=== PATIENT | male | born 1960 | race Caucasian/White ===

== ENCOUNTER 2016-04-20 17:02 | Inpatient (IN) | payer BC ==
--- NOTE | 2016-04-20 16:52 | CT ---
EXAMINATION TYPE: CT abdomen pelvis w con DATE OF EXAM: 04/20/2016 4:39 PM COMPARISON: NONE HISTORY: 55-year-old male with right lower quadrant pain x 2 days. TECHNIQUE: Contiguous axial scanning of the abdomen and pelvis following administration of 100 ml Omn ipaque 300 IV contrast. Delayed images through the kidneys and coronal/sagittal reconstructions perf ormed. CT DLP: 1124.00 mGycm Automated exposure control for dose reduction was used. FINDINGS: Heart is normal size without pericardial effusion. Lung bases clear without pleural effusion. No focal liver lesion or biliary ductal dilatation. Small diverticulum of the second portion of the d uodenum projecting into the pancreatic head region. Portal venous system is patent Gallbladder, adrenal glands, kidneys, spleen with hilar splenule, and pancreas appear within normal l imits. No dilated small bowel, free fluid, or free air. The appendix is identified and is abnormally thickened, fluid-filled, and with mucosal hyperemia dist ended up to 1.4 cm with a number of appendicoliths within measuring up to 8 mm. There is moderate melvin rounding fat stranding and soft tissue thickening extending to the appendiceal base within the cecum, axial image 55. A few reactive right lower quadrant mesenteric lymph nodes are present measuring up to 9 mm. Mild circumferential bladder wall thickening. Prostate gland mildly enlarged at 4.1 cm. Central prost atic calcifications are noted. No abnormal fluid collection in the pelvis or pelvic lymphadenopathy. Bones: Degenerative changes right SI joint. Additional degenerative changes lower lumbar spine with b ilateral L5 pars defects and grade 1 L5-S1 anterolisthesis. No osseous destructive process. IMPRESSION: 1. FINDINGS COMPATIBLE WITH ACUTE APPENDICITIS. THERE IS MODERATELY INTENSE INFLAMMATION WITHOUT APPE NDICEAL RUPTURE, ABSCESS, OR FREE AIR. APPENDICOLITHS ARE PRESENT WITHIN MEASURING UP TO 8 MM. 2. ABNORMAL SOFT TISSUE THICKENING LOCATED ALONG THE BASE OF THE APPENDIX AT THE CECUM MAY BE REACTIV E MURAL EDEMA. CORRELATE WITH FINDINGS ON SURGERY TO EXCLUDE NEOPLASTIC THICKENING. 3. MILD CIRCUMFERENTIAL BLADDER WALL THICKENING COULD REFLECT CHRONIC BLADDER WALL HYPERTROPHY OR CYS TITIS. 4. BILATERAL L5 PARS DEFECTS WITH GRADE 1 L5-S1 ANTEROLISTHESIS.
[2016-04-20] MEDS ORDERED: HYDROmorphone 1 MG/ML 1 ML SYRINGE IVP STA (17:22)
[2016-04-20] MEDS ORDERED: SODIUM CHLORIDE 0.9% 1,000 ML IV STA (17:22)
[2016-04-20] MEDS ORDERED: ONDANSETRON 4 MG/2 ML VIAL IVP STA (17:22)
[2016-04-20] MEDS ORDERED: PIPERACILLIN-TAZOBACTAM 3.375 GM in DEXTROSE/WATER 1 50ML.BAG IVPB STA (17:22)
--- NOTE | 2016-04-20 17:26 | ED ---
General Adult HPI - General Chief complaint: Abdominal Pain Stated complaint: abnormal results from CT Time Seen by Provider: 04/20/16 17:05 Source: patient, RN notes reviewed Mode of arrival: ambulatory Limitations: no limitations - History of Present Illness Initial comments: This is a 55-year-old male who presents emergency Department with acute appendicitis. Patient had an outpatient CAT scan done it was found to have appendicitis I sent the patient to the emergency department. Patient states that a couple days of right lower quadrant pain which is getting progressively worse per patient denies any fever chills per patient states he has not been hungry and been a little bit nauseous but has not vomited. Patient denies any diarrhea. Patient denies any chest pain difficult breathing shortness of breath. Dr. Mendoza is aware of the case and called the emergency department to inform us that he'll be arriving. - Related Data Home Medications Medication Instructions Recorded Confirmed Hydrochlorothiazide [Hydrodiuril] 12.5 mg PO DAILY 03/22/14 04/20/16 Omeprazole [PriLOSEC] 20 mg PO DAILY 03/22/14 04/20/16 Ciprofloxacin HCl [Cipro] 500 mg PO BID 04/20/16 04/20/16 Levothyroxine Sodium [Synthroid] 75 mcg PO DAILY 04/20/16 04/20/16 Lisinopril 40 mg PO DAILY 04/20/16 04/20/16 Multivitamins, Thera [Multivitamin] 1 tab PO DAILY 04/20/16 04/20/16 metroNIDAZOLE [Flagyl] 500 mg PO TID 04/20/16 04/20/16 Allergies Allergy/AdvReac Type Severity Reaction Status Date / Time No Known Allergies Allergy Verified 04/20/16 17:17 Review of Systems ROS Statement: Those systems with pertinent positive or pertinent negative responses have been documented in the HPI. ROS Other: All systems not noted in ROS Statement are negative. Past Medical History Past Medical History: GERD/Reflux, Hypertension Additional Past Medical History / Comment(s): HOLE IN HEART AT History of Any Multi-Drug Resistant Organisms: None Reported Past Surgical History: Coronary Bypass/CABG Additional Past Surgical History / Comment(s): OPEN HEART -1968 Past Anesthesia/Blood Transfusion Reactions: No Reported Reaction Past Psychological History: No Psychological Hx Reported Smoking Status: Former smoker Past Alcohol Use History: None Reported Past Drug Use History: None Reported - Past Family History Father Family Medical History: CVA/TIA General Exam - General Exam Comments Initial Comments: GENERAL: Patient is well-developed and well-nourished. Patient is nontoxic and well- hydrated and is in mild distress. ENT: Neck is soft and supple. No significant lymphadenopathy is noted. Oropharynx is clear. Moist mucous membranes. Neck has full range of motion without eliciting any pain. EYES: The sclera were anicteric and conjunctiva were pink and moist. Extraocular movements were intact and pupils were equal round and reactive to light. Eyelids were unremarkable. PULMONARY: Unlabored respirations. Good breath sounds bilaterally. No audible rales rhonchi or wheezing was noted. CARDIOVASCULAR: There is a regular rate and rhythm without any murmurs gallops or rubs. ABDOMEN: Patient has right lower quadrant tenderness with rebound. SKIN: Skin is clear with no lesions or rashes and otherwise unremarkable. NEUROLOGIC: Patient is alert and oriented x3. Cranial nerves II through XII are grossly intact. Motor and sensory are also intact. Normal speech, volume and content. Symmetrical smile. MUSCULOSKELETAL: Normal extremities with adequate strength and full range of motion. No lower extremity swelling or edema. No calf tenderness. LYMPHATICS: No significant lymphadenopathy is noted PSYCHIATRIC: Normal psychiatric evaluation. Normal interpersonal interactions appears functionally intact in deals appropriately with others. No signs of depression. No signs of anxiety Limitations: no limitations Course Vital Signs 04/20/16 04/20/16 17:02 17:56 Temperature 98.9 F Pulse Rate 86 78 Respiratory 17 18 Rate Blood Pressure 151/77 150/80 O2 Sat by Pulse 99 96 Oximetry Medical Decision Making - Medical Decision Making Computed tomography scan was reviewed by myself showed acute appendicitis. I spoke with Dr. Henry he wanted the patient admitted admitted the patient started antibiotics and gave the patient some fluids. - Lab Data Result diagrams: 04/20/16 17:40 04/20/16 17:40 Lab Results 04/20/16 04/20/16 04/20/16 Range/Units 17:40 17:40 17:40 WBC 13.9 H (3.8-10.6) k/uL RBC 4.91 (4.30-5.90) m/uL Hgb 14.2 (13.0-17.5) gm/dL Hct 41.1 (39.0-53.0) % MCV 83.6 (80.0-100.0) fL MCH 29.0 (25.0-35.0) pg MCHC 34.6 (31.0-37.0) g/dL RDW 13.4 (11.5-15.5) % Plt Count 245 (150-450) k/uL Neutrophils % 84 % Lymphocytes % 7 % Monocytes % 6 % Eosinophils % 1 % Basophils % 0 % Neutrophils # 11.7 H (1.3-7.7) k/uL Lymphocytes # 1.0 (1.0-4.8) k/uL Monocytes # 0.9 (0-1.0) k/uL Eosinophils # 0.1 (0-0.7) k/uL Basophils # 0.0 (0-0.2) k/uL Sodium 133 L (137-145) mmol/L Potassium 4.2 (3.5-5.1) mmol/L Chloride 95 L (98-107) mmol/L Carbon Dioxide 25 (22-30) mmol/L Anion Gap 13 mmol/L BUN 17 (9-20) mg/dL Creatinine 0.81 (0.66-1.25) mg/dL Est GFR (MDRD) Af Amer >60 (>60 ml/min/1.73 sqM) Est GFR (MDRD) Non-Af >60 (>60 ml/min/1.73 sqM) Glucose 110 H (74-99) mg/dL Plasma Lactic Acid Siddhartha 0.7 (0.7-2.0) mmol/L Calcium 9.6 (8.4-10.2) mg/dL Total Bilirubin 1.1 (0.2-1.3) mg/dL AST 24 (17-59) U/L ALT 41 (21-72) U/L Alkaline Phosphatase 90 (38-126) U/L Total Protein 7.7 (6.3-8.2) g/dL Albumin 4.3 (3.5-5.0) g/dL Amylase 39 (30-110) U/L Lipase 67 (23-300) U/L Urine Color Urine Appearance (Clear) Urine pH (5.0-8.0) Ur Specific O'Brien (1.001-1.035) Urine Protein (Negative) Urine Glucose (UA) (Negative) Urine Ketones (Negative) Urine Blood (Negative) Urine Nitrate (Negative) Urine Bilirubin (Negative) Urine Urobilinogen (<2.0) mg/dL Ur Leukocyte Esterase (Negative) 04/20/16 Range/Units 17:44 WBC (3.8-10.6) k/uL RBC (4.30-5.90) m/uL Hgb (13.0-17.5) gm/dL Hct (39.0-53.0) % MCV (80.0-100.0) fL MCH (25.0-35.0) pg MCHC (31.0-37.0) g/dL RDW (11.5-15.5) % Plt Count (150-450) k/uL Neutrophils % % Lymphocytes % % Monocytes % % Eosinophils % % Basophils % % Neutrophils # (1.3-7.7) k/uL Lymphocytes # (1.0-4.8) k/uL Monocytes # (0-1.0) k/uL Eosinophils # (0-0.7) k/uL Basophils # (0-0.2) k/uL Sodium (137-145) mmol/L Potassium (3.5-5.1) mmol/L Chloride (98-107) mmol/L Carbon Dioxide (22-30) mmol/L Anion Gap mmol/L BUN (9-20) mg/dL Creatinine (0.66-1.25) mg/dL Est GFR (MDRD) Af Amer (>60 ml/min/1.73 sqM) Est GFR (MDRD) Non-Af (>60 ml/min/1.73 sqM) Glucose (74-99) mg/dL Plasma Lactic Acid Siddhartha (0.7-2.0) mmol/L Calcium (8.4-10.2) mg/dL Total Bilirubin (0.2-1.3) mg/dL AST (17-59) U/L ALT (21-72) U/L Alkaline Phosphatase (38-126) U/L Total Protein (6.3-8.2) g/dL Albumin (3.5-5.0) g/dL Amylase (30-110) U/L Lipase (23-300) U/L Urine Color Yellow Urine Appearance Clear (Clear) Urine pH 6.5 (5.0-8.0) Ur Specific O'Brien 1.036 H (1.001-1.035) Urine Protein Negative (Negative) Urine Glucose (UA) Negative (Negative) Urine Ketones Negative (Negative) Urine Blood Negative (Negative) Urine Nitrate Negative (Negative) Urine Bilirubin Negative (Negative) Urine Urobilinogen <2.0 (<2.0) mg/dL Ur Leukocyte Esterase Negative (Negative) Disposition Clinical Impression: Acute appendicitis Disposition: ADMITTED IP TO THIS [facility] Time of Disposition: 18:59
[2016-04-20] MEDS ORDERED: DIPHENOX-ATROP STARTER PACK 8 TAB BTL PO STA (18:07)
[2016-04-20 18:12] LABS: ALT 41 U/L (21-72); AST 24 U/L (17-59); Alkaline Phosphatase 90 U/L (38-126); Amylase 39 U/L (30-110); Anion Gap 13 mmol/L; Blood Urea Nitrogen 17 mg/dL (9-20); Calcium 9.6 mg/dL (8.4-10.2); Carbon Dioxide 25 mmol/L (22-30); Chloride 95 mmol/L (98-107); Glucose 110 mg/dL (74-99); Non-African American GFR(MDRD) >60 (>60 ml/min/1.73 sqM); Potassium 4.2 mmol/L (3.5-5.1); Sodium 133 mmol/L (137-145); Total Bilirubin 1.1 mg/dL (0.2-1.3); Total Protein 7.7 g/dL (6.3-8.2)
[2016-04-20 18:14] LABS: Basophils % (A) 0 %; CH 30.2; CHCM 36.3; Eosinophils # (A) 0.1 k/uL (0-0.7); Eosinophils % (A) 1 %; HCT 41.1 % (39.0-53.0); HDW 3.02; HGB 14.2 gm/dL (13.0-17.5); Luc # (Auto) 0.23; Luc % (Auto) 2; Lymphocytes % (A) 7 %; MCHC 34.6 g/dL (31.0-37.0); MCV 83.6 fL (80.0-100.0); Mean Platelet Volume 6.9; Monocytes # (A) 0.9 k/uL (0-1.0); Monocytes % (A) 6 %; Neutrophils # (A) 11.7 k/uL (1.3-7.7); Neutrophils % (A) 84 %; RBC 4.91 m/uL (4.30-5.90); RDW 13.4 % (11.5-15.5); WBC 13.9 k/uL (3.8-10.6); WBC (Perox) 13.64
[2016-04-20 18:15] LABS: Appearance,Urine Clear (Clear); Bilirubin,Urine Negative (Negative); Glucose,Urine (UA) Negative (Negative); Ketones,Urine Negative (Negative); Leukocyte Esterase,Urine Negative (Negative); Nitrite,Urine Negative (Negative); PH, Urine 6.5 (5.0-8.0); Protein,Urine Negative (Negative); Specific Gravity,Urine 1.036 (1.001-1.035); UA Billing (MACRO vs. MICRO) CHEM; Urobilinogen,Urine <2.0 mg/dL (<2.0)
[2016-04-20] MEDS ORDERED: HYDROmorphone 1 MG/ML 1 ML SYRINGE IVP PRN ×2 (19:00→21:39)
[2016-04-20] MEDS ORDERED: ONDANSETRON 4 MG/2 ML VIAL IVP PRN (19:00)
[2016-04-20] MEDS ORDERED: SODIUM CHLORIDE 0.9% 1,000 ML IV ONE (19:56)
--- NOTE | 2016-04-20 20:43 | P.GSHP ---
History of Present Illness H&P Date: 04/20/16 Chief Complaint: Right lower quadrant pain This is a 55-year-old male who had complaints of abdominal pain. The patient was seen by Tanisha Bruner this morning and sent for a CAT scan. Patient was found have appendicitis. The patient states she's had pain for 2 days. He states his pain was a 10 out of 10 this morning Past Medical History Past Medical History: GERD/Reflux, Hypertension Additional Past Medical History / Comment(s): HOLE IN HEART AT History of Any Multi-Drug Resistant Organisms: None Reported Past Surgical History: Coronary Bypass/CABG Additional Past Surgical History / Comment(s): OPEN HEART -1968 Past Anesthesia/Blood Transfusion Reactions: No Reported Reaction Past Psychological History: No Psychological Hx Reported Smoking Status: Former smoker Past Alcohol Use History: None Reported Past Drug Use History: None Reported - Past Family History Father Family Medical History: CVA/TIA Medications and Allergies Home Medications Medication Instructions Recorded Confirmed Type Hydrochlorothiazide [Hydrodiuril] 12.5 mg PO DAILY 03/22/14 04/20/16 History Omeprazole [PriLOSEC] 20 mg PO DAILY 03/22/14 04/20/16 History Ciprofloxacin HCl [Cipro] 500 mg PO BID 04/20/16 04/20/16 History Levothyroxine Sodium [Synthroid] 75 mcg PO DAILY 04/20/16 04/20/16 History Lisinopril 40 mg PO DAILY 04/20/16 04/20/16 History Multivitamins, Thera [Multivitamin] 1 tab PO DAILY 04/20/16 04/20/16 History metroNIDAZOLE [Flagyl] 500 mg PO TID 04/20/16 04/20/16 History Allergies Allergy/AdvReac Type Severity Reaction Status Date / Time No Known Allergies Allergy Verified 04/20/16 17:17 Surgical - Exam Vital Signs Temp Pulse Resp BP Pulse Ox 98.9 F 86 17 151/77 99 04/20/16 17:02 04/20/16 17:02 04/20/16 17:02 04/20/16 17:02 04/20/16 17:02 - General well developed, no distress - Eyes PERRL - ENT normal pinna - Neck no masses - Respiratory normal expansion - Abdomen Abdomen: tender (Tenderness right lower quadrant. There is some rebound tenderness) Results - Labs 04/20/16 17:40 04/20/16 17:40 Assessment and Plan Plan: Acute appendicitis. We'll perform laparoscopic appendectomy
[2016-04-20] MEDS ORDERED: BUPIVACAIN-EPI 0.25%-1:200,000 30 ML VIAL SQ ONE ×2 (20:45→21:32)
[2016-04-20] MEDS ORDERED: NEOSTIGMINE 1 MG/ML 10 ML VIAL ONE (20:55)
[2016-04-20] MEDS ORDERED: LIDOCAINE 1% INJ 10MG/ML (20 ML MDV) ONE (20:55)
[2016-04-20] MEDS ORDERED: GLYCOPYRROLATE 0.2 MG/ML 2 ML VIAL ONE (20:55)
[2016-04-20] MEDS ORDERED: fentaNYL (PF) 50 MCG/ML 2 ML AMP ONE (20:55)
[2016-04-20] MEDS ORDERED: ROCURONIUM BROMIDE 10 MG/ML 10 ML VIAL IV ONE (20:55)
[2016-04-20] MEDS ORDERED: DEXAMETHASONE SOD PHOS (MDV) 100 MG/10 ML VIAL ONE (20:55)
[2016-04-20] MEDS ORDERED: SUCCINYLCHOLINE CHLORIDE 100 MG/5 ML SYR IV ONE (20:55)
[2016-04-20] MEDS ORDERED: PROPOFOL 10 MG/ML 20 ML VIAL IV ONE (20:55)
[2016-04-20] MEDS ORDERED: MIDAZOLAM 2 MG/2 ML VIAL ONE (20:55)
--- NOTE | 2016-04-20 21:38 | P.OP ---
Date of Procedure: 04/20/16 Preoperative Diagnosis: Acute appendicitis Postoperative Diagnosis: Acute appendicitis with ruptured appendicitis Procedure(s) Performed: Laparoscopic appendectomy Anesthesia: JOSEPHINE Surgeon: Jacoby Mendoza Estimated Blood Loss (ml): 5 Pathology: other Condition: stable (Appendix) Disposition: PACU Description of Procedure: The patient's placed on the operating table in the supine position. The patient received general anesthesia. The abdomen was prepped and draped in the usual sterile fashion. The skin was anesthetized 1% local Xylocaine at the trocar sites. Using an 11 blade the skin was incised at the umbilicus. The umbilicus was grasped with a Jostin clamp and then a Veress needle was placed into the peritoneal cavity. Position of the Veress needle was confirmed with positive drop test. After adequate insufflation a 5 mm trocar was placed into the peritoneal cavity. The abdomen was further insufflated. And then the laparoscope was placed in the peritoneal cavity. Next a 5 mm trocar was placed in the midline suprapubic position. And then a 10 mm trocar was placed in the midline epigastric position. The patient was rotated with the right side up and in Trendelenburg. The appendix was visualized. There appeared to be some perforation near the base the appendix. This area was irrigated well. The appendix appeared to be inflamed. The appendix was grasped and then using the Harmonic scissors the mesoappendix was divided. A PDS Endoloop was then placed around the base of the appendix on viable tissue. And then the appendix was divided using Harmonic scissors. The appendix was placed into an Endo Catch and brought out through the 10 mm trocar site. The abdomen was irrigated. There is no bleeding seen. The trochars withdrawn. The skin was closed interrupted 3-0 Monocryl suture. Dermabond dressing was applied. Patient was sent to recovery room in stable condition.
[2016-04-20] MEDS ORDERED: NALOXONE 0.4 MG/ML 1 ML VIAL IV PRN (21:39)
[2016-04-20] MEDS ORDERED: LACTATED RINGERS 1,000 ML IV ONE (21:39)
[2016-04-20] MEDS ORDERED: ACETAMINOPHEN TAB 325 MG TAB PO PRN (21:39)
[2016-04-20] MEDS: MEPERIDINE 50 MG/ML SYRINGE IVP ONE ×4 (21:51→22:12)
[2016-04-20] MEDS: SODIUM CHLORIDE 0.9% 1,000 ML IV ONE ×2 (22:13→22:32)
[2016-04-20 23:09] VITALS: BMI 24.5
[2016-04-20] MEDS: PIPERACILLIN-TAZOBACTAM 3.375 GM in DEXTROSE/WATER 1 50ML.BAG IVPB SCH (23:16)
[2016-04-21] MEDS: PIPERACILLIN-TAZOBACTAM 3.375 GM in DEXTROSE/WATER 1 50ML.BAG IVPB SCH ×3 (09:28→23:29)
[2016-04-21] MEDS: HYDROcodone/APAP 5-325MG 1 EACH TAB PO PRN ×3 (09:31→22:17)
[2016-04-21 09:56] LABS: ALT 44 U/L (21-72); AST 25 U/L (17-59); Alkaline Phosphatase 78 U/L (38-126); Anion Gap 14 mmol/L; Blood Urea Nitrogen 15 mg/dL (9-20); Calcium 8.8 mg/dL (8.4-10.2); Carbon Dioxide 23 mmol/L (22-30); Chloride 102 mmol/L (98-107); Glucose 180 mg/dL (74-99); Non-African American GFR(MDRD) >60 (>60 ml/min/1.73 sqM); Potassium 4.6 mmol/L (3.5-5.1); Sodium 139 mmol/L (137-145); Total Protein 6.7 g/dL (6.3-8.2)
[2016-04-21 11:34] LABS: Basophils % (A) 0 %; CHCM 35.8; Eosinophils % (A) 0 %; HCT 39.3 % (39.0-53.0); HDW 2.96; HGB 13.7 gm/dL (13.0-17.5); Luc # (Auto) 0.05; Luc % (Auto) 0; Lymphocytes # (A) 0.3 k/uL (1.0-4.8); Lymphocytes % (A) 3 %; MCH 29.4 pg (25.0-35.0); MCHC 34.9 g/dL (31.0-37.0); MCV 84.2 fL (80.0-100.0); Monocytes # (A) 0.4 k/uL (0-1.0); Monocytes % (A) 3 %; Neutrophils # (A) 11.3 k/uL (1.3-7.7); Neutrophils % (A) 93 %; RBC 4.67 m/uL (4.30-5.90); WBC 12.2 k/uL (3.8-10.6); WBC (Perox) 13.59
[2016-04-21 12:49] LABS: Manual Review Performed
[2016-04-21 12:50] LABS: RBC Morphology Normal
--- NOTE | 2016-04-21 14:48 | P.PN ---
Subjective Principal diagnosis: Ruptured appendicitis Patient is a 55-year-old white male admitted with abdominal pain and evidence of acute appendicitis. Patient was taken to the operating room and underwent laparoscopic appendectomy with findings of ruptured appendicitis. Patient is evaluated on the medical floor he is postop day #1. Patient reports abdominal pain is better. Denies chills, nausea, vomiting, shortness of breath, or chest pain. Patient is tolerating a clear liquid diet. Patient has been up ambulating. Patient is urinating without difficulty. Patient is passing flatus without bowel movements. Afebrile. Hemodynamically stable. WBC decreased to 12.2. Hemoglobin stable at 13.7. Patient remains on IV Zosyn. Infectious disease service appropriate services following patient. Objective - Vital Signs Vital signs: Vital Signs Temp 98.2 F 04/21/16 07:00 Pulse 80 04/21/16 08:00 Resp 18 04/21/16 08:00 BP 176/79 04/21/16 07:00 Pulse Ox 96 04/21/16 07:00 Intake & Output 04/20/16 04/21/16 04/21/16 18:59 06:59 18:59 Intake Total 2000 Output Total 805 Balance 1195 Weight 77.5 kg 77.5 kg Intake: IV 2000 Lactated Ringers 1,000 ml 1000 @ 125 mls/hr IV .Q8H ONE Rx#:[id number] Output: Urine 800 Estimated Blood Loss 5 Other: Voiding Method Toilet Toilet Urinal Urinal - Exam GENERAL: Pt awake and alert, well-appearing, well-nourished, and in no acute distress. LUNGS: Breath sounds clear to auscultation bilaterally. No wheezes, rales, or rhonchi. HEART: Heart S1, S2, no S3 or S4. Regular rate and rhythm. Systolic murmur. ABDOMEN: Soft, mild incisional tenderness, nondistended, normoactive bowel sounds. No guarding, no rebound. Laparoscopic surgical dressings with old sister sanguinous drainage. NEUROLOGICAL: Pt oriented x 3. - Labs CBC & Chem 7: 04/21/16 08:24 04/21/16 08:24 Labs: Abnormal Lab Results - Last 24 Hours (Table) 04/21/16 04/21/16 Range/Units 08:24 08:24 WBC 12.2 H (3.8-10.6) k/uL Neutrophils # 11.3 H (1.3-7.7) k/uL Lymphocytes # 0.3 L (1.0-4.8) k/uL Glucose 180 H (74-99) mg/dL Assessment and Plan Plan: Impression: 1. Perforated appendicitis status post laparoscopic appendectomy. Plan: Continue to monitor patient. Continue IV antibiotics per infectious disease recommendations. Continue supportive treatment and pain management. Advance diet to regular. Continue supportive treatment and pain management. Continue to follow with medical and infectious disease service. Repeat CBC and BMP in a.m. The above impression and plan have been discussed and directed by Dr. Mendoza. Ciaran CORREA acting as scribe for Dr. Mendoza.
[2016-04-21] MEDS: MULTIVITAMINS, THERA 1 EACH TAB PO SCH (16:04)
[2016-04-21] MEDS: LEVOTHYROXINE 75 MCG TAB PO SCH (16:04)
[2016-04-21] MEDS: HYDROCHLOROTHIAZIDE 12.5 MG CAP PO SCH (16:04)
[2016-04-21] MEDS: LISINOPRIL 20 MG TAB PO SCH (16:06)
--- NOTE | 2016-04-21 16:30 | P.CONS ---
History of Present Illness - Reason for Consult Consult date: 04/21/16 Medical management Requesting physician: Jacoby Mendoza - Chief Complaint Abdominal pain - History of Present Illness This is a 55-year-old gentleman with past medical history noted below who presented to the hospital with worsening abdominal pain. Patient was evaluated in the emergency room and underwent a computed tomography scan of the abdomen showing evidence of acute appendicitis with suspected perforated appendix. Patient was taken to the OR and underwent laparoscopic appendectomy. He remained hemodynamically stable. He tolerated the surgery well. He is complaining of abdominal distention and bloating. He denies any significant pain. He is passing gas but did not have a bowel movement as of yet. I was asked to see him for medical management. Review of Systems Review of system: 14 points review of systems were obtained and were negative except to what were mentioned in the HPI. Past Medical History Past Medical History: GERD/Reflux, Hypertension Additional Past Medical History / Comment(s): HOLE IN HEART AT History of Any Multi-Drug Resistant Organisms: None Reported Past Surgical History: Appendectomy, Coronary Bypass/CABG, Ear Surgery Additional Past Surgical History / Comment(s): OPEN HEART -1969 Past Anesthesia/Blood Transfusion Reactions: No Reported Reaction Past Psychological History: No Psychological Hx Reported Smoking Status: Former smoker Past Alcohol Use History: None Reported Past Drug Use History: None Reported - Past Family History Father Family Medical History: CVA/TIA Medications and Allergies Home Medications Medication Instructions Recorded Confirmed Type Hydrochlorothiazide [Hydrodiuril] 12.5 mg PO DAILY 03/22/14 04/20/16 History Omeprazole [PriLOSEC] 20 mg PO DAILY 03/22/14 04/20/16 History Ciprofloxacin HCl [Cipro] 500 mg PO BID 04/20/16 04/20/16 History Levothyroxine Sodium [Synthroid] 75 mcg PO DAILY 04/20/16 04/20/16 History Lisinopril 40 mg PO DAILY 04/20/16 04/20/16 History Multivitamins, Thera [Multivitamin] 1 tab PO DAILY 04/20/16 04/20/16 History metroNIDAZOLE [Flagyl] 500 mg PO TID 04/20/16 04/20/16 History Allergies Allergy/AdvReac Type Severity Reaction Status Date / Time No Known Allergies Allergy Verified 04/20/16 17:17 Physical Exam Vitals: Vital Signs Temp Pulse Pulse Pulse Resp BP BP 04/21/16 15:00 97.7 F 84 18 164/78 04/21/16 08:00 80 80 18 04/21/16 07:00 98.2 F 80 18 176/79 04/21/16 01:50 92 151/85 04/21/16 01:20 84 153/79 04/21/16 00:50 146/84 04/21/16 00:20 86 16 133/81 04/20/16 23:50 86 16 128/79 04/20/16 23:35 86 18 144/72 04/20/16 23:20 98.2 F 80 18 135/83 04/20/16 23:00 97.5 F L 80 16 147/80 04/20/16 22:30 77 16 130/53 04/20/16 22:15 75 16 145/66 04/20/16 22:00 68 16 132/61 04/20/16 21:45 97.8 F 70 16 136/65 04/20/16 20:01 99.2 F 70 16 128/70 04/20/16 19:00 78 16 153/74 Pulse Ox 04/21/16 15:00 94 L 04/21/16 08:00 04/21/16 07:00 96 04/21/16 01:50 100 04/21/16 01:20 98 04/21/16 00:50 98 04/21/16 00:20 98 04/20/16 23:50 98 04/20/16 23:35 97 04/20/16 23:20 96 04/20/16 23:00 97 04/20/16 22:30 94 L 04/20/16 22:15 93 L 04/20/16 22:00 96 04/20/16 21:45 98 04/20/16 20:01 97 04/20/16 19:00 97 Intake and Output 04/21/16 04/21/16 04/21/16 06:59 14:59 22:59 Intake Total 1000 Output Total 500 Balance 500 Intake: IV 1000 Lactated Ringers 1,000 ml 1000 @ 125 mls/hr IV .Q8H ONE Rx#:[id number] Output: Urine 500 Other: Voiding Method Toilet Toilet Urinal Urinal # Voids 2 Weight 77.5 kg 77.5 kg Patient Weight 04/22/16 06:59 Weight 77.5 kg General: The patient is awake and alert, in no distress Eye: there is normal conjunctiva bilaterally. Neck: The neck is supple, there is no JVD. Cardiovascular: Normal S1-S2, no S3-S4, no murmurs. Respiratory: Lungs clear to auscultation bilaterally Gastrointestinal: Abdomen is soft, but distended with no tenderness Musculoskeletal: There is no pedal edema. Neurological:. Speech is normal. Skin: Skin is warm and dry Results CBC & Chem 7: 04/21/16 08:24 04/21/16 08:24 Labs: Abnormal Lab Results - Last 24 Hours (Table) 04/21/16 04/21/16 Range/Units 08:24 08:24 WBC 12.2 H (3.8-10.6) k/uL Neutrophils # 11.3 H (1.3-7.7) k/uL Lymphocytes # 0.3 L (1.0-4.8) k/uL Glucose 180 H (74-99) mg/dL Assessment and Plan Plan: 1. Acute appendicitis with suspected perforated appendix status post laparoscopic appendectomy: Continue postoperative care. Encouraged ambulation. Diet will be advanced per surgery recommendations. 2. Perforated appendix with mild peritonitis: Currently on IV antibiotic. A be switched to Augmentin tomorrow if continue to to be stable clinically 3. Essential hypertension: Blood pressure not well controlled. Home medication resumed. We will continue to monitor closely. 4. Hypothyroidism on levothyroxin 5. DVT prophylaxis with subcu heparin Today, I reviewed her medication list and lab work results. Continue current regimen. Thank you very much for the consultation. I will continue to follow up on the patient closely.
[2016-04-21] MEDS: HEPARIN SODIUM,PORCINE 5,000 UNIT/ML 1 ML VIAL SQ SCH (20:51)
[2016-04-21 22:47] VITALS: RESP 16
--- NOTE | 2016-04-21 23:30 | CONS ---
DATE OF CONSULTATION: 04/21/2016 REASON FOR CONSULTATION: Secondary peritonitis with ruptured appendicitis. HISTORY OF PRESENT ILLNESS: The patient is a 55-year-old male who presented to [facility] ER with the chief complaint of abdominal pain that started on Tuesday. Pain has been mostly in the right lower abdominal area described as sharp, almost 7 to 8 out of 10, and no radiation. The patient felt nauseated but no vomiting with it. The patient did have some chills but denies any high-grade fever. Subsequently the patient was evaluated by the ER physician. The patient did have a CT of the abdomen and pelvis which did show the appendix to be abnormal, thickened, fluid-filled, with mucosal hyperemia, distended up to 1.4 cm, with moderate surrounding fat stranding and soft tissue thickening. Subsequently he was taken to the OR by Dr. Mendoza that evening, where the patient was noticed to have ruptured appendicitis. The patient is status post appendectomy. Blood cultures were obtained. He was started on piperacillin tazobactam. I was asked to see the patient for further recommendations regarding antibiotic therapy. REVIEW OF SYSTEMS: CONSTITUTIONAL: Positive for weakness and some chills. EYES: No complaint. ENT: No complaint. RESPIRATORY: No complaint. CARDIOVASCULAR: No complaint. GENITOURINARY: No complaint. GASTROINTESTINAL: As per HPI. MUSCULOSKELETAL: No complaint. INTEGUMENTARY: No complaint. PSYCHOLOGIC: No complaint. ENDOCRINE: No complaint. NEUROLOGIC: No complaint. Past medical history is significant for: 1. Hypertension. 2. Gastroesophageal reflux disease. 3. Cardiac abnormality at . PAST SURGICAL HISTORY: 1. Appendectomy. 2. Coronary surgery for repair of the cardiac abnormality. SOCIAL HISTORY: Remote history of smoking. No drinking or drug use. FAMILY HISTORY: Father with history of CVA and TIA. ALLERGIES: NO KNOWN DRUG ALLERGIES. Medications currently include: 1. Piperacillin tazobactam. 2. Zofran. 3. Narcan. 4. Theragran. 5. Zestril. 6. Synthroid. 7. Dilaudid. 8. Hydrochlorothiazide. 9. Heparin. 10. [place]. 11. Tylenol. On examination, blood pressure is 164/78 with a pulse 84, temperature 97.7. He is 94% on room air. General description is a middle-aged male lying in bed in no distress. No tachypnea or accessory muscle of respiration use. HEENT examination shows no pallor or scleral icterus. Oral mucous membrane dry. NECK: Trachea is central. No thyromegaly. LUNGS: Unlabored breathing. Clear to auscultation anteriorly. HEART: S1, S2. Regular rate and rhythm. ABDOMEN: Soft. No guarding. No rigidity. EXTREMITIES: No edema of feet. SKIN EXAMINATION: No rash or mass palpable. NEUROLOGICAL: Patient is awake, alert, oriented x3. Mood and affect normal. LABS: Hemoglobin is 13.7, white count of 12.2. Yesterday white count was 13.9. BUN of 15, creatinine 0.74. UA has been negative. Blood cultures are currently pending. DIAGNOSTIC IMPRESSION AND PLAN: Patient with secondary peritonitis from ruptured appendicitis. Patient has not been on antibiotics in the recent past. More likely a sensitive enteric Gram-negative both aerobes and anaerobes that will likely need to be covered. PLAN: 1. The patient will be continued on Zosyn 3.375 grams IV piggyback q.8. That should cover the enteric Gram-negative, both aerobes and anaerobes. 2. Will follow up on the clinical condition as well as the culture to further adjust medication if needed. Thank you for this consultation. Will follow this patient along with you. CONTRERAS
[2016-04-22] MEDS: LEVOTHYROXINE 75 MCG TAB PO SCH (06:16)
[2016-04-22 07:50] VITALS: BP 130/79; PULSE 52; TEMP 97.6
[2016-04-22] MEDS: LISINOPRIL 20 MG TAB PO SCH (07:50)
[2016-04-22] MEDS: PIPERACILLIN-TAZOBACTAM 3.375 GM in DEXTROSE/WATER 1 50ML.BAG IVPB SCH (07:50)
[2016-04-22] MEDS: MULTIVITAMINS, THERA 1 EACH TAB PO SCH (07:51)
[2016-04-22] MEDS: HYDROCHLOROTHIAZIDE 12.5 MG CAP PO SCH (07:51)
[2016-04-22] MEDS: HEPARIN SODIUM,PORCINE 5,000 UNIT/ML 1 ML VIAL SQ SCH (07:51)
[2016-04-22 10:04] LABS: Basophils # (A) 0.2 k/uL (0-0.2); Basophils % (A) 2 %; CH 29.8; CHCM 34.9; Eosinophils # (A) 0.2 k/uL (0-0.7); Eosinophils % (A) 2 %; HCT 36.5 % (39.0-53.0); HDW 3.02; HGB 12.4 gm/dL (13.0-17.5); Luc % (Auto) 1; Lymphocytes # (A) 0.8 k/uL (1.0-4.8); Lymphocytes % (A) 7 %; MCH 29.1 pg (25.0-35.0); MCV 85.8 fL (80.0-100.0); Mean Platelet Volume 7.9; Monocytes # (A) 0.5 k/uL (0-1.0); Monocytes % (A) 4 %; Neutrophils # (A) 9.8 k/uL (1.3-7.7); Neutrophils % (A) 85 %; RBC 4.26 m/uL (4.30-5.90); WBC 11.5 k/uL (3.8-10.6); WBC (Perox) 11.83
[2016-04-22 10:26] LABS: Anion Gap 12 mmol/L; Blood Urea Nitrogen 16 mg/dL (9-20); Carbon Dioxide 28 mmol/L (22-30); Chloride 97 mmol/L (98-107); Glucose 143 mg/dL (74-99); Non-African American GFR(MDRD) >60 (>60 ml/min/1.73 sqM); Potassium 3.8 mmol/L (3.5-5.1); Sodium 137 mmol/L (137-145)
--- NOTE | 2016-04-22 12:13 | P.PN ---
Subjective Patient presented with abdominal pain found to have a subacute appendicitis with suspected perforated appendix. Went to OR and had laparoscopic appendectomy. He's also being treated for peritonitis. Patient is tolerating regular diet. Denies any nausea or vomiting. He is passing gas. No bowel movement yet. Denies any chest pain or shortness breath. Denies any difficulty urinating. Pain is controlled. Patient is anticipating discharge later today. Discussed case with Dr. Dutta and he is planning discharge this afternoon. Objective - Vital Signs Vital signs: Vital Signs Temp 97.6 F 04/22/16 07:00 Pulse 52 L 04/22/16 08:00 Resp 16 04/22/16 08:00 BP 130/79 04/22/16 07:00 Pulse Ox 94 L 04/22/16 07:00 Intake & Output 04/21/16 04/22/16 04/22/16 18:59 06:59 18:59 Intake Total 200 Balance 200 Weight 77.5 kg 77.5 kg Intake: Oral 200 Other: Voiding Method Toilet Toilet Toilet Urinal Urinal Urinal # Voids 2 1 - Exam Head normocephalic Neck supple Lungs clear to auscultation bilaterally no wheezing or crackles Heart regular rate and rhythm S1-S2, no rub or gallop Abdomen is soft nontender nondistended positive bowel sounds no hepatosplenomegaly Extremities no edema Neuro alert and orientated to 3 - Labs CBC & Chem 7: 04/22/16 08:35 04/22/16 08:35 Labs: Abnormal Lab Results - Last 24 Hours (Table) 04/21/16 04/22/16 04/22/16 Range/Units 08:24 08:35 08:35 WBC 12.2 H 11.5 H (3.8-10.6) k/uL RBC 4.26 L (4.30-5.90) m/uL Hgb 12.4 L (13.0-17.5) gm/dL Hct 36.5 L (39.0-53.0) % Neutrophils # 11.3 H 9.8 H (1.3-7.7) k/uL Lymphocytes # 0.3 L 0.8 L (1.0-4.8) k/uL Chloride 97 L (98-107) mmol/L Glucose 143 H (74-99) mg/dL Assessment and Plan Plan: 1. Acute appendicitis with suspected perforated appendix status post laparoscopic appendectomy: Continue postoperative care. Encouraged ambulation. Diet will be advanced per surgery recommendations. 2. Perforated appendix with mild peritonitis: Currently on IV antibiotic. Infectious disease is following. We'll await their dictations for discharge antibiotics 3. Essential hypertension: Blood pressures have improved after restarting home medications. 4. Hypothyroidism on levothyroxin 5. DVT prophylaxis with subcu heparin Patient is medically stable for discharge once infectious disease gives their antibiotic recommendations. Patient is to follow-up with his PCP in 1 week.
[2016-04-22 13:16] LABS: Hemoglobin A1C 5.2 % (4.2-6.1)
--- NOTE | 2016-04-22 13:27 | PN ---
DATE OF SERVICE: 04/22/2016 Reason for followup is acute appendicitis with perforation and secondary peritonitis. INTERVAL HISTORY: The patient is afebrile. Has been feeling better. His abdominal pain has improved. The patient is tolerating a diet. There is no nausea, vomiting or any diarrhea. On examination, blood pressure 130/79 with a pulse of 52, temperature 97.6. He is 94% on room air. General description is a middle-age male lying in bed in no distress. RESPIRATORY SYSTEM: Unlabored breathing. Clear to auscultation anteriorly. HEART: S1, S2. Regular rate and rhythm. ABDOMEN: Soft. No tenderness. LABS: Hemoglobin is 12.4, white count 11.5 with a BUN of 16, creatinine 0.85. Blood culture negative. no abdominal culture were done. DIAGNOSTIC IMPRESSION AND PLAN: Patient with secondary peritonitis from a ruptured appendicitis. The patient is responding to the, Zosyn that will be continued. Awaiting for the culture to finalize to determine his discharge antibiotics. Continue supportive care. CONTRERAS
--- NOTE | 2016-04-22 14:42 | P.DS ---
Providers Date of admission: 04/20/16 18:59 Expected date of discharge: 04/22/16 Attending physician: Jacoby Mendoza Consults: 04/20/16 21:39 Consult Physician Routine Consulting Provider: Noy Rosario Consult Reason/Comments: Medical management Do you want consulting provider notified?: Yes Consult Physician Routine Consulting Provider: Brittany William Consult Reason/Comments: Perforated appendicitis Do you want consulting provider notified?: Yes Primary care physician: Connie Vela Hospital Course: Patient is a 55-year-old white male admitted with abdominal pain and evidence of acute appendicitis. Patient was taken to the operating room and underwent laparoscopic appendectomy with findings of ruptured appendicitis. Patient tolerated procedure well. Patient was followed by Dr. Willima from infectious disease service during hospital stay. Patient had an uneventful postoperative course. Patient improved significantly and was deemed stable for discharge to home with follow-up in the outpatient setting. Discharge diagnoses: 1. Perforated appendicitis status post laparoscopic appendectomy. The above impression and plan have been discussed and directed by Dr. Mendoza. Ciaran CORREA acting as scribe for Dr. Mendoza. Pertinent Studies: Abdomen/pelvis CT Procedures: Lab scopic appendectomy Patient Condition at Discharge: Good Plan - Discharge Summary New Discharge Prescriptions: HYDROcodone/APAP 7.5-325MG [[place] 7.5-325] 1 tab PO Q6HR PRN #28 tab PRN Reason: Pain Discharge Medication List Hydrochlorothiazide [Hydrodiuril] 12.5 mg PO DAILY 03/22/14 [History] Omeprazole [PriLOSEC] 20 mg PO DAILY 03/22/14 [History] Ciprofloxacin HCl [Cipro] 500 mg PO BID 04/20/16 [History] Levothyroxine Sodium [Synthroid] 75 mcg PO DAILY 04/20/16 [History] Lisinopril 40 mg PO DAILY 04/20/16 [History] Multivitamins, Thera [Multivitamin] 1 tab PO DAILY 04/20/16 [History] metroNIDAZOLE [Flagyl] 500 mg PO TID 04/20/16 [History] HYDROcodone/APAP 7.5-325MG [[place] 7.5-325] 1 tab PO Q6HR PRN #28 tab 04/21/16 [ Rx] Follow up Appointment(s)/Referral(s): Connie Veal DO [Primary Care Provider] - 04/29/16 1:15 pm Brittany William MD [STAFF PHYSICIAN] - 1 Week (Please see Dr. Vela first according to insurance and get a referral to make an appointment with Dr. William then call and schedule it. ) Jacoby Mendoza MD [STAFF PHYSICIAN] - 04/27/16 1:30 pm Patient Instructions/Handouts: Hydrocodone/Acetaminophen (By mouth), Laparoscopic Appendectomy (DC) Activity/Diet/Wound Care/Special Instructions: continue to take the antibiotics ordered pre surgery Flagyl 500 mg every 8 hours until finished Cipro 500 mg every 12 hours until finished Regular diet. Discharge Disposition: HOME SELF-CARE
== END 2016-04-22 14:38 | disposition home or self-care (01) | DRG 340 ==
LOC: EC 17:02 → 5MS5E 18:59 → EDSTATUS 19:20 → 5MS5E 19:22
PROVIDERS: ADMIT Surgery; ATTEND Surgery
PROC: 0DTJ4ZZ Resection of Appendix, Percutaneous Endoscopic Approach (ICD-10-PCS; principal; 2016-04-20 19:30)
DX: K35.2 Acute appendicitis with generalized peritonitis (principal); I10 Essential (primary) hypertension; K21.9 Gastro-esophageal reflux disease without esophagitis; R73.9 Hyperglycemia, unspecified; I25.10 Atherosclerotic heart disease of native coronary artery without angina pectoris; E03.9 Hypothyroidism, unspecified; Z87.891 Personal history of nicotine dependence; Z95.1 Presence of aortocoronary bypass graft; Z79.899 Other long term (current) drug therapy
CPT/HCPCS: 36415; 74177; 80048; 80053; 81003; 82150; 83036; 83605; 83690; 85025; 87040; 88304; 96361; 96374; 96375; 99285

== ENCOUNTER → 2017-12-12 | Outpatient (CLI) | payer OTHER ==
--- NOTE | 2017-12-13 08:21 | XR ---
EXAMINATION TYPE: XR cervical spine comp DATE OF EXAM: 12/13/2017 COMPARISON: NONE HISTORY: Pain TECHNIQUE: Four views are submitted. FINDINGS: The odontoid is intact. There are no compression deformities. The prevertebral soft tissue structur es are within normal limits. Severe degenerative disc disease C4-5, C5-6 and C6-C7 with hypertrophic spurring. IMPRESSION: 1. Multilevel severe degenerative disc disease recommend follow-up MRI.
== END | disposition home or self-care (01) ==
LOC: RADXRYALE 14:18
PROVIDERS: ATTEND Physician Assistant Medical
DX: M50.321 Other cervical disc degeneration at C4-C5 level (principal)
CPT/HCPCS: 71046; 72050

== ENCOUNTER → 2018-02-06 | Outpatient (CLI) | payer OTHER | END | disposition home or self-care (01) | LOC: RADMRIMAIN 16:42 | PROVIDERS: ATTEND Physician Assistant Medical | DX: Z53.9 Procedure and treatment not carried out, unspecified reason (principal) ==

== ENCOUNTER → 2018-02-22 | Outpatient (CLI) | payer OTHER ==
--- NOTE | 2018-02-22 12:38 | CT ---
EXAMINATION TYPE: CT cervical spine wo con DATE OF EXAM: 02/22/2018 COMPARISON: NONE HISTORY: Left side neck pain with radiation to the left arm/shoulder. CT DLP: 403.9 mGycm. Automated Exposure Control for Dose Reduction was Utilized. TECHNIQUE: CT scan of the cervical spine is obtained without contrast, axial images are obtained, sa gittal and coronal reformatted images are also reviewed. FINDINGS: Cervical spine is visualized in its entirety from C1 through upper thoracic levels. Prever tebral soft tissue appears within normal limits. The C1-C2 articulation is within normal limits on t he coronal images. There is straightening of usual cervical lordosis in the upper cervical spine. There is minimal anter ior wedging of the C5 vertebral body with slight left lateral sclerosis likely on a degenerative basi s. Multilevel Schmorl's nodes, anterior osteophytes, uncovertebral hypertrophy and facet arthropathy are seen. Multilevel intervertebral disc space narrowing is noted with posterior disc osteophyte comp lexes at C4-C5 and C5-C6. Facets remain aligned. Skull base is also aligned. Schmorl's node of the ferreira perior endplate of C7 at its right lateral aspect create slight protrusion of the posterior superior endplate into the ventral subarachnoid space. Punctate probable bone island is seen of the spinous pr ocess of T1. No acute fracture or malalignment is seen of the cervical spine. At C2-C3 there is a small central disc herniation without spinal canal stenosis or neural foraminal n arrowing. At C3-C4 there is a small central disc osteophyte complex and uncovertebral hypertrophy creating mild bilateral neural foraminal narrowing. No spinal canal stenosis. At C4-C5 there is a broad-based disc bulge, facet arthropathy and uncovertebral hypertrophy moderatel y narrowing the left neural foramen, mildly narrowing the right neural foramen, and creating mild spi nal canal stenosis. At C5-C6 there is uncovertebral hypertrophy and facet arthropathy creating moderate left neural tatianna inal narrowing and mild right neural foraminal narrowing. There is resultant mild spinal canal stenos is at this level. C6-C7: There is uncovertebral hypertrophy and facet arthropathy creating moderate right neural forami nal narrowing and mild left neural foraminal narrowing as well as a right paracentral disc herniation creating mild spinal canal stenosis. C7-T1 no significant disc disease, spinal canal stenosis nor neural foraminal narrowing. Visualized lung apices demonstrate mild emphysematous change and biapical pleural parenchymal thicken ing. Incidentally noted carotid arterial calcifications are seen at the carotid bulbs. IMPRESSION: It should be noted that disc herniations and spinal canal stenosis are more accurately as sessed with MRI. 1. Small central disc herniation at C2-C3 without spinal canal stenosis or neural foraminal narrowing . 2. Small right paracentral disc herniation at C6-C7 resulting in mild spinal canal stenosis. Degenera tive disc disease at C4-C5 and C5-C6 also resultant mild spinal canal stenosis at these levels. 3. Moderate degenerative disc disease of the cervical spine resulting in variable degrees of neural f oraminal narrowing as described above. 4. Age-indeterminate mild compression deformity/anterior wedging of the C5 vertebral body. Correlate with point tenderness to determine acuity. If there is further concern MRI could assess for bone emily ow edema.
== END ==
LOC: RADCTMAIN 11:51
PROVIDERS: ATTEND Family Medicine
DX: M48.02 Spinal stenosis, cervical region (principal); M99.71 Connective tissue and disc stenosis of intervertebral foramina of cervical region; M50.21 Other cervical disc displacement, high cervical region; M50.321 Other cervical disc degeneration at C4-C5 level; M48.52XA Collapsed vertebra, not elsewhere classified, cervical region, initial encounter for fracture
CPT/HCPCS: 72125

== ENCOUNTER → 2018-03-02 | Outpatient (CLI) | payer OTHER ==
--- NOTE | 2018-03-03 09:17 | XR ---
EXAMINATION TYPE: XR finger LT DATE OF EXAM: 03/02/2018 COMPARISON: 10/12/2012 HISTORY: Left second digit infection after injury. TECHNIQUE: 2 views of the second left digit. FINDINGS: There is a linear radiopaque foreign body of the radial and palmar aspect of the second dig it overlying the proximal phalanx. However this has been present since 2012. Subcutaneous soft tissue swelling is noted circumferentially of the second digit. Progressive arthropathy has occurred in the interim visualized in the first carpometacarpal joint, second metacarpal phalangeal joint, third pro ximal interphalangeal joint and second and third distal interphalangeal joints. No current cortical e rosion or periosteal reaction is seen. IMPRESSION: Diffuse subcutaneous soft tissue swelling of the left second digit without acute fracture , dislocation, or radiographic sequela of current osteomyelitis. Retained radiopaque foreign body of the radial and palmar aspect of the second digit overlying the proximal phalanx is stable dating back to 2012. Additionally there is moderate arthropathy noted as described above.
== END ==
LOC: RADXRYALE 15:59
PROVIDERS: ATTEND Physician Assistant Medical
DX: M19.042 Primary osteoarthritis, left hand (principal)

== ENCOUNTER → 2018-04-17 | Outpatient (CLI) | payer OTHER ==
--- NOTE | 2018-04-17 14:49 | XR ---
EXAMINATION TYPE: XR wrist complete LT DATE OF EXAM: 04/17/2018 CLINICAL HISTORY: Generalized pain, gout. TECHNIQUE: Frontal, lateral and oblique images of the left wrist are obtained. COMPARISON: Left second finger x-ray March 02, 2018 FINDINGS: There is no acute fracture/dislocation evident in the left wrist. Mild narrowing distal sc aphoid articulation with trapezium and trapezoid is redemonstrated. There is incidental ulnar positio ruthie of second proximal phalanx relative to second metacarpal head with moderate to severe narrowing. There is moderate soft tissue swelling in the second finger with radial surface 8 mm linear subcutan eous foreign body redemonstrated. IMPRESSION: As above.
== END | disposition home or self-care (01) ==
LOC: RADXRYALE 14:32
PROVIDERS: ATTEND Physician Assistant Medical
DX: S60.852A Superficial foreign body of left wrist, initial encounter (principal); M25.832 Other specified joint disorders, left wrist

== ENCOUNTER → 2024-09-12 | Outpatient (CLI) | payer OTHER ==
--- NOTE | 2024-09-13 08:37 | XR ---
EXAMINATION TYPE: XR pelvis AP view DATE OF EXAM: 09/12/2024 4:45 PM COMPARISON: None. CLINICAL INDICATION: Male, 63 years old with history of [id number], pain TECHNIQUE: XR pelvis AP view views were obtained FINDINGS: No evidence for fracture, dislocation or bony lesion. Severe degenerative narrowing left h ip joint space with subchondral sclerosis and cyst formation. Right hip joint space has a normal appe arance. SI joints appear symmetric. IMPRESSION: No acute fracture or dislocation seen. [facility], , 09/13/2024 8:35 AM
--- NOTE | 2024-09-13 08:40 | XR ---
EXAMINATION TYPE: XR Hip Complete LT DATE OF EXAM: 09/12/2024 4:45 PM COMPARISON: None. CLINICAL INDICATION: Male, 63 years old with history of [id number], TECHNIQUE: AP and frogleg views of the left hip are obtained. FINDINGS: There is no acute fracture/dislocation evident in the left hip. Severe degenerative narro wing left hip joint space with subchondral sclerosis and cyst formation. The overlying soft tissue appears unremarkable. IMPRESSION: There is no acute fracture or dislocation in the left hip. [facility], , 09/13/2024 8:37 AM
--- NOTE | 2024-09-13 08:41 | XR ---
EXAMINATION TYPE: XR shoulder complete LT DATE OF EXAM: 09/12/2024 4:44 PM COMPARISON: None. CLINICAL INDICATION: Male, 63 years old with history of [id number], pain TECHNIQUE: XR shoulder complete LT views were obtained FINDINGS: There is no acute fracture/dislocation evident. The acromioclavicular and glenohumeral joint spaces appear within normal limits. The visualized ribs are intact and unremarkable. IMPRESSION: There is no acute fracture or dislocation. [facility], , 09/13/2024 8:39 AM
== END | disposition home or self-care (01) ==
LOC: RADXRYALE 16:10
PROVIDERS: ATTEND Physician Assistant Medical
DX: M46.1 Sacroiliitis, not elsewhere classified (principal); M75.52 Bursitis of left shoulder; M75.22 Bicipital tendinitis, left shoulder; W18.30XD Fall on same level, unspecified, subsequent encounter
CPT/HCPCS: 72170; 73502